=== PATIENT | male | born 1985 | race Two or more races ===

== ENCOUNTER 2018-06-11 21:56 | Emergency (ER) | payer BC ==
[2018-06-11] MEDS ORDERED: Lidocaine 1% 10 ML MDV INJECT ONE (22:21)
--- NOTE | 2018-06-11 22:22 | EDM.PDOC ---
ED HPI GENERAL MEDICAL PROBLEM - General Chief Complaint: Skin Complaint Stated Complaint: DIZZY Time Seen by Provider: 06/11/18 22:21 Source of Information: Reports: Patient - History of Present Illness INITIAL COMMENTS - FREE TEXT/NARRATIVE: HISTORY AND PHYSICAL: History of present illness: [Patient presents with cellulitis over left pubic area likely arising from an ingrown pubic care, is no fluctuation however there is some induration hence no exudates for culture, palms sized area of redness and tenderness in the left groin penis and scrotum are not involved Patient says he has had off-and-on subjective fever since 2 PM no nausea vomiting chills sweats no chest pain shortness breath headache dizziness palpitation no bowel or urine symptoms] Review of systems: As per history of present illness and below otherwise all systems reviewed and negative. Past medical history: As per history of present illness and as reviewed below otherwise noncontributory. Surgical history: As per history of present illness and as reviewed below otherwise noncontributory. Social history: No reported history of drug or alcohol abuse. Family history: As per history of present illness and as reviewed below otherwise noncontributory. Physical exam: HEENT: Atraumatic, normocephalic, pupils reactive, negative for conjunctival pallor or scleral icterus, mucous membranes moist, throat clear, neck supple, nontender, trachea midline. Lungs: Clear to auscultation, breath sounds equal bilaterally, chest nontender. Heart: S1S2, regular, negative for clicks, rubs, or JVD. Abdomen: Soft, nondistended, nontender. Negative for masses or hepatosplenomegaly. Negative for costovertebral tenderness. Pelvis: Stable nontender. Genitourinary: Deferred. Rectal: Deferred. Extremities: Atraumatic, negative for cords or calf pain. Neurovascular unremarkable. Neuro: Awake, alert, oriented. Cranial nerves II through XII unremarkable. Cerebellum unremarkable. Motor and sensory unremarkable throughout. Exam nonfocal. Diagnostics: [Clinical] Therapeutics: [Lidocaine ]Invanz 1 g IM Bactrim double strength by mouth twice a day #20 no refill Follow-up in 24 hours for recheck through the ER or with primary care impression: [ cellulitis ] Definitive disposition and diagnosis as appropriate pending reevaluation and review of above. left groin Pain Score (Numeric/FACES): 5 - Related Data Allergies Allergy/AdvReac Type Severity Reaction Status Date / Time No Known Allergies Allergy Verified 06/11/18 23:11 Home Meds: Home Meds Enalapril [Vasotec] 0 mg PO DAILY 06/11/18 [History] ED ROS GENERAL - Review of Systems Review Of Systems: See Below ED EXAM, SKIN/RASH Exam: See Below Course - Vital Signs Last Recorded V/S: Last Vital Signs Temp 96.9 F 06/11/18 22:18 Pulse 118 H 06/11/18 22:18 Resp 18 06/11/18 22:18 BP 159/94 H 06/11/18 22:18 Pulse Ox 95 06/11/18 22:18 - Orders/Labs/Meds Orders: Active Orders 24 hr Category Date Time Status Ertapenem [INVanz] Med 06/11/18 23:53 Stat 1 gm IM NOW STA Sulfamethoxazole/Trimethoprim [Septra DS] Med 06/11/18 23:53 Once 1 tab PO ONETIME ONE Meds: Medications Discontinued Medications Generic Name Dose Route Start Last Admin Trade Name Isaias PRN Reason Stop Dose Admin Lidocaine HCl 10 ml 06/11/18 22:28 Xylocaine-Mpf 1% INJECT 06/11/18 22:29 ONETIME ONE Departure - Departure Time of Disposition: 23:56 Disposition: Home, Self-Care 01 Condition: Good Clinical Impression: Cellulitis - Discharge Information Referrals: PCP,None [Primary Care Provider] - Forms: ED Department Discharge Additional Instructions: Follow-up through ER or with primary care in 24 hours for recheck Return if symptoms persist or worsen despite treatment The following information is given to patients seen in the emergency department who are being discharged to home. This information is to outline your options for follow-up care. We provide all patients seen in our emergency department with a follow-up referral. The need for follow-up, as well as the timing and circumstances, are variable depending upon the specifics of your emergency department visit. If you don't have a primary care physician on staff, we will provide you with a referral. We always advise you to contact your personal physician following an emergency department visit to inform them of the circumstance of the visit and for follow-up with them and/or the need for any referrals to a consulting specialist. The emergency department will also refer you to a specialist when appropriate. This referral assures that you have the opportunity for follow-up care with a specialist. All of these measure are taken in an effort to provide you with optimal care, which includes your follow-up. Under all circumstances we always encourage you to contact your private physician who remains a resource for coordinating your care. When calling for follow-up care, please make the office aware that this follow-up is from your recent emergency room visit. If for any reason you are refused follow-up, please contact the [facility] emergency department at and asked to speak to the emergency department charge nurse. - My Orders Last 24 Hours: My Active Orders 06/11/18 23:53 Ertapenem [INVanz] 1 gm IM NOW STA Sulfamethoxazole/Trimethoprim [Septra DS] 1 tab PO ONETIME ONE - Assessment/Plan Last 24 Hours: My Active Orders 06/11/18 23:53 Ertapenem [INVanz] 1 gm IM NOW STA Sulfamethoxazole/Trimethoprim [Septra DS] 1 tab PO ONETIME ONE
[2018-06-11] MEDS ORDERED: Ertapenem 1 GM Vial IM STA (23:53)
[2018-06-11] MEDS ORDERED: Sulfamethoxazole/Trimethoprim 800-160 MG Tab PO ONE (23:53)
== END 2018-06-12 00:44 | disposition home or self-care (01) ==
LOC: MW.ED 21:56
DX: L03.818 Cellulitis of other sites (principal); Z79.899 Other long term (current) drug therapy
CPT/HCPCS: 96372; 99283; A9270; J1335; J2001

== ENCOUNTER 2018-06-12 17:09 | Emergency (ER) | payer BC ==
--- NOTE | 2018-06-12 17:39 | EDM.PDOC ---
ED HPI GENERAL MEDICAL PROBLEM - General Chief Complaint: Wound Recheck Stated Complaint: "CHECK UP" Time Seen by Provider: 06/12/18 17:26 Source of Information: Reports: Patient History Limitations: Reports: No Limitations - History of Present Illness INITIAL COMMENTS - FREE TEXT/NARRATIVE: HISTORY AND PHYSICAL: History of present illness: Patient is a 32-year-old male who presents to the emergency room for reevaluation of a cellulitis to the left groin/mons pubis area. Patient was seen yesterday in our emergency room for a cellulitis which he had noticed over the past few days. He was given a shot of Invanz IM and placed on Bactrim DS. Patient states that he feels improved and believes the area is smaller in size and less irritated appearing. He offers no current complaints or concerns. Patient denies any fever, chills, headache, change in vision, syncope or near syncope. Denies any chest pain, back pain, shortness of breath or cough. Denies any abdominal pain, nausea, vomiting, diarrhea, constipation or dysuria. Has not noted any blood in urine or stool. Patient has been eating and drinking appropriately. Review of systems: As per history of present illness and below otherwise all systems reviewed and negative. Past medical history: As per history of present illness and as reviewed below otherwise noncontributory. Surgical history: As per history of present illness and as reviewed below otherwise noncontributory. Social history: See social history for further information Family history: As per history of present illness and as reviewed below otherwise noncontributory. Physical exam: General: Well-developed and well-nourished 32-year-old male. Alert and oriented. Nontoxic appearing and in no acute distress. HEENT: Atraumatic, normocephalic, pupils equal and reactive bilaterally, negative for conjunctival pallor or scleral icterus, mucous membranes moist, TMs normal bilaterally, throat clear, neck supple, nontender, trachea midline. No drooling or trismus noted. No meningeal signs. No hot potato voice noted. Lungs: Clear to auscultation, breath sounds equal bilaterally, chest nontender. Heart: S1S2, regular rate and rhythm without overt murmur Abdomen: Soft, nondistended, nontender. Negative for masses or hepatosplenomegaly. Negative for costovertebral tenderness. Pelvis: Stable nontender. Genitourinary: Deferred. Rectal: Deferred. Skin: Patient has a palmar sized surface to the left groin going into the mons pubis which is erythematous mild soft tissue swelling but nonfluctuant. Intact, warm, dry. No lesions or rashes noted. Extremities: Atraumatic, moves all extremities per self without difficulty or deficits, negative for cords or calf pain. Neurovascular unremarkable. Neuro: Awake, alert, oriented. Cranial nerves II through XII unremarkable. Cerebellum unremarkable. Motor and sensory unremarkable throughout. Exam nonfocal. Notes: Area appears cellulitic without abscess. Patient states he feels much improved since yesterday and receiving the antibiotics. We discussed signs and symptoms to continue to monitor for that would prompt him to return to the emergency room. On a secondary note the patient states he is out of his hypertension medication, as he just moved here he does not have a primary care provider. We' ll give him a limited amount of his medication until he is able to follow up with primary care. Supportive care measures were reviewed and discussed. Voices understanding and is agreeable to plan of care. Denies any further questions or concerns at this time. Diagnostics: None Therapeutics: None Prescription: Vasotec Impression: Wound recheck Encounter for medication refill Plan: 1. Continue to monitor the area for signs of improvement. Continue taking her antibiotic. 2. Establish care with a primary care provider for further refills of your hypertension medication and reevaluation of the cellulitis. 3. Return to the ED as needed and as discussed. Definitive disposition and diagnosis as appropriate pending reevaluation and review of above. Left groin Pain Score (Numeric/FACES): 3 - Related Data Allergies Allergy/AdvReac Type Severity Reaction Status Date / Time No Known Allergies Allergy Verified 06/12/18 17:24 Home Meds: Home Meds Enalapril [Vasotec] 0 mg PO DAILY 06/11/18 [History] Past Medical History HEENT History: Reports: None Cardiovascular History: Reports: Hypertension Respiratory History: Reports: None Gastrointestinal History: Reports: None Genitourinary History: Reports: None Musculoskeletal History: Reports: None Neurological History: Reports: None Psychiatric History: Reports: None Endocrine/Metabolic History: Reports: None Dermatologic History: Reports: None - Infectious Disease History Infectious Disease History: Reports: Chicken Pox - Past Surgical History Male Surgical History: Reports: None Social & Family History - Family History Family Medical History: Noncontributory ED ROS GENERAL - Review of Systems Review Of Systems: ROS reveals no pertinent complaints other than HPI. ED EXAM, SKIN/RASH Exam: See Below (See dictation) Course - Vital Signs Last Recorded V/S: Last Vital Signs Temp 98.7 F 06/12/18 17:24 Pulse 93 06/12/18 17:24 Resp 16 06/12/18 17:24 BP 135/77 06/12/18 17:24 Pulse Ox 95 06/12/18 17:24 Departure - Departure Time of Disposition: 17:39 Disposition: Home, Self-Care 01 Clinical Impression: Encounter for wound re-check, Encounter for medication refill - Discharge Information Referrals: PCP,Unknown [Primary Care Provider] - Additional Instructions: The following information is given to patients seen in the emergency department who are being discharged to home. This information is to outline your options for follow-up care. We provide all patients seen in our emergency department with a follow-up referral. The need for follow-up, as well as the timing and circumstances, are variable depending upon the specifics of your emergency department visit. If you don't have a primary care physician on staff, we will provide you with a referral. We always advise you to contact your personal physician following an emergency department visit to inform them of the circumstance of the visit and for follow-up with them and/or the need for any referrals to a consulting specialist. The emergency department will also refer you to a specialist when appropriate. This referral assures that you have the opportunity for follow-up care with a specialist. All of these measure are taken in an effort to provide you with optimal care, which includes your follow-up. Under all circumstances we always encourage you to contact your private physician who remains a resource for coordinating your care. When calling for follow-up care, please make the office aware that this follow-up is from your recent emergency room visit. If for any reason you are refused follow-up, please contact the [facility] Emergency Department at and asked to speak to the emergency department charge nurse. [facility] [address] [place] [id number] [facility] [address] [place] [address] 1. Continue to monitor the area for signs of improvement. Continue taking her antibiotic. 2. Establish care with a primary care provider for further refills of your hypertension medication and reevaluation of the cellulitis. 3. Return to the ED as needed and as discussed.
== END 2018-06-12 17:55 | disposition home or self-care (01) ==
LOC: MW.ED 17:09
DX: Z48.817 Encounter for surgical aftercare following surgery on the skin and subcutaneous tissue (principal); Z76.0 Encounter for issue of repeat prescription; I10 Essential (primary) hypertension; Z79.899 Other long term (current) drug therapy; R42 Dizziness and giddiness; L03.818 Cellulitis of other sites
CPT/HCPCS: 96372; 99282; 99283; A9270; J1335; J2001

== ENCOUNTER 2018-06-17 16:58 | Emergency (ER) | payer BC ==
--- NOTE | 2018-06-17 17:18 | EDM.PDOC ---
ED HPI GENERAL MEDICAL PROBLEM - General Chief Complaint: Skin Complaint Stated Complaint: CHECK UP ON ABSESS Time Seen by Provider: 06/17/18 17:00 Source of Information: Reports: Patient History Limitations: Reports: No Limitations - History of Present Illness INITIAL COMMENTS - FREE TEXT/NARRATIVE: HISTORY AND PHYSICAL: History of present illness: Patient is a 32-year-old male who presents to the emergency room requesting reevaluation of a cellulitis. Patient reports that the redness has improved but feels like the area is now very localized and as if he could "put a pin in it". Patient was initially evaluated on 06/11/2018 and had lab work along with an IM injection of Invanz. Patient was placed on Bactrim DS orally. He was reevaluated on 06/12/2018 for reevaluation after starting the medications. His cellulitis had greatly improved along with his symptoms. Patient denies any fever, chills, headache, change in vision, syncope or near syncope. Denies any chest pain, back pain, shortness of breath or cough. Denies any abdominal pain, nausea, vomiting, diarrhea, constipation or dysuria. Has not noted any blood in urine or stool. Patient has been eating and drinking appropriately. Review of systems: As per history of present illness and below otherwise all systems reviewed and negative. Past medical history: As per history of present illness and as reviewed below otherwise noncontributory. Surgical history: As per history of present illness and as reviewed below otherwise noncontributory. Social history: See social history for further information Family history: As per history of present illness and as reviewed below otherwise noncontributory. Physical exam: General: Well-developed and well-nourished 32-year-old male. Alert and oriented. Nontoxic appearing and in no acute distress. HEENT: Atraumatic, normocephalic, pupils equal and reactive bilaterally, negative for conjunctival pallor or scleral icterus, mucous membranes moist, trachea midline. No drooling or trismus noted. No meningeal signs. No hot potato voice noted. Lungs: Clear to auscultation, breath sounds equal bilaterally, chest nontender. Heart: S1S2, regular rate and rhythm without overt murmur Abdomen: Soft, nondistended, nontender. Pelvis: Stable nontender. See skin. Skin: Large palm size area of erythema to the left mons pubis. Does have a localized area of fluctuance approximately the size of a nickel in the center of it. Otherwise skin is intact, warm, dry. No lesions or rashes noted. Extremities: Atraumatic, moves all extremities per self without difficulty or deficits, negative for cords or calf pain. Neurovascular unremarkable. Neuro: Awake, alert, oriented. Cranial nerves II through XII unremarkable. Cerebellum unremarkable. Motor and sensory unremarkable throughout. Exam nonfocal. Notes: Patient is continuing to take his Bactrim DS. Dr Whelan assisted with procedure. Betadine was used to cleanse the skin. 1% lidocaine was used to anesthetize the fluctuant area. Usual and customary procedures were used for I& D procedure. 11 blade was used for I&D with moderate amount of purulent drainage coming from the site. Site was irrigated with pressure irrigation. 1 inch to foam packing was placed. Wound care instructions were reviewed and discussed. Wound care provided. Supportive care measures were reviewed and discussed. Voices understanding and is agreeable to plan of care. Denies any further questions or concerns at this time. Diagnostics: None Therapeutics: I&D Prescription: Fletcher (#15) Impression: Abscess Plan: 1. Keep skin clean and dry. 2. Tylenol and Ibuprofen as needed for pain. Fletcher for moderate to severe pain. Will cause drowsiness; don't drive with medication. 3. Follow-up with your primary care provider/establish care as we have discussed previously and again today. Return to the ED as needed and as discussed. Definitive disposition and diagnosis as appropriate pending reevaluation and review of above. Left Groin Pain Score (Numeric/FACES): 5 - Related Data Allergies Allergy/AdvReac Type Severity Reaction Status Date / Time No Known Allergies Allergy Verified 06/12/18 17:24 Home Meds: Home Meds Sulfamethoxazole/Trimethoprim [Bactrim Ds Tablet] 1 each PO DAILY 06/17/18 [ History] Past Medical History HEENT History: Reports: None Cardiovascular History: Reports: Hypertension Respiratory History: Reports: None Gastrointestinal History: Reports: None Genitourinary History: Reports: None Musculoskeletal History: Reports: None Neurological History: Reports: None Psychiatric History: Reports: None Endocrine/Metabolic History: Reports: None Dermatologic History: Reports: None - Infectious Disease History Infectious Disease History: Reports: Chicken Pox - Past Surgical History Male Surgical History: Reports: None Social & Family History - Family History Family Medical History: Noncontributory - Caffeine Use Caffeine Use: Reports: None ED ROS GENERAL - Review of Systems Review Of Systems: ROS reveals no pertinent complaints other than HPI. ED EXAM, SKIN/RASH Exam: See Below (See dictation) ED SKIN PROCEDURES - I&D Site: Mons Pubis Skin Prep: Providone-Iodine (Betadine), Saline, Sterile Drape Local Anesthesia: Lidocaine: 1% Plain Local Anesthetic Volume: 4cc Area Incised With: 11 Blade Drainage: Purulent, Moderate Amount Probed to Break Up Loculations: Yes Packed With: 1 in. Iodoform Sterile Dressing: Adhesive Dressing Complications: No Course - Vital Signs Last Recorded V/S: Last Vital Signs Temp 97.3 F 06/17/18 17:23 Pulse 81 06/17/18 18:07 Resp 16 06/17/18 18:07 BP 134/71 06/17/18 18:07 Pulse Ox 99 06/17/18 18:07 - Orders/Labs/Meds Meds: Medications Discontinued Medications Generic Name Dose Route Start Last Admin Trade Name Isaias PRBert Reason Stop Dose Admin Hydrocodone Bitart/Acetaminophen 1 tab 06/17/18 17:48 06/17/18 18:00 Fletcher 325-5 Mg PO 06/17/18 17:49 1 tab ONETIME ONE Administration Lidocaine HCl 5 ml 06/17/18 17:25 06/17/18 17:31 Xylocaine-Mpf 1% INJECT 06/17/18 17:26 5 ml ONETIME ONE Administration Departure - Departure Time of Disposition: 17:47 Disposition: Home, Self-Care 01 Clinical Impression: Abscess - Discharge Information Instructions: Skin Abscess, [id number] Referrals: PCP,Unknown [Primary Care Provider] - Forms: ED Department Discharge Additional Instructions: The following information is given to patients seen in the emergency department who are being discharged to home. This information is to outline your options for follow-up care. We provide all patients seen in our emergency department with a follow-up referral. The need for follow-up, as well as the timing and circumstances, are variable depending upon the specifics of your emergency department visit. If you don't have a primary care physician on staff, we will provide you with a referral. We always advise you to contact your personal physician following an emergency department visit to inform them of the circumstance of the visit and for follow-up with them and/or the need for any referrals to a consulting specialist. The emergency department will also refer you to a specialist when appropriate. This referral assures that you have the opportunity for follow-up care with a specialist. All of these measure are taken in an effort to provide you with optimal care, which includes your follow-up. Under all circumstances we always encourage you to contact your private physician who remains a resource for coordinating your care. When calling for follow-up care, please make the office aware that this follow-up is from your recent emergency room visit. If for any reason you are refused follow-up, please contact the [facility] Emergency Department at and asked to speak to the emergency department charge nurse. [facility] [address] [place], [place] [id number] [place] [address] 1. Keep skin clean and dry. Pull the wick out in 24 hours. 2. Tylenol and Ibuprofen as needed for pain. Fletcher for moderate to severe pain. Will cause drowsiness; don't drive with medication. 3. Follow-up with your primary care provider/establish care as we have discussed previously and again today. Return to the ED as needed and as discussed.
[2018-06-17] MEDS ORDERED: Acetaminophen/HYDROcodone 325-5 MG Tab PO ONE (17:48)
== END 2018-06-17 18:08 | disposition home or self-care (01) ==
LOC: MW.ED 16:58
DX: L02.215 Cutaneous abscess of perineum (principal)
CPT/HCPCS: 10061; 99282; A9270; J2001

== ENCOUNTER 2021-02-06 10:23 | Emergency (ER) | payer BC ==
[2021-02-06] MEDS ORDERED: Sodium Chloride 0.9% 10 ML Syringe FLUSH PRN (10:45)
[2021-02-06] MEDS ORDERED: Sodium Chloride 0.9% 2.5 ML Syringe FLUSH PRN (10:45)
--- NOTE | 2021-02-06 10:55 | EDM.PDOC ---
ED HPI GENERAL MEDICAL PROBLEM - General Chief Complaint: Respiratory Problem Stated Complaint: HARD TIME BREATHING Time Seen by Provider: 02/06/21 10:23 - History of Present Illness INITIAL COMMENTS - FREE TEXT/NARRATIVE: History of present illness: [] Patient says he started having symptoms 7 days ago. He has chest pain. He has cough. He feels fatigued. He has no sinus congestion. He does get a little sweaty when he has the pain. It is fairly constant. He is a non-smoker. He was tested +4 days ago for COVID-19. His is also positive for COVID- 19. Patient was not vaccinated. This patient was seen and evaluated during the 2019 SARS-CoV-2 novel coronavirus pandemic period. Community viral transmission is ongoing at time of this encounter and the emergency department is operating under pandemic response p rocedures. Review of systems: As per history of present illness and below otherwise all systems reviewed and negative. Past medical history: As per history of present illness and as reviewed below otherwise noncontributory. Surgical history: As per history of present illness and as reviewed below otherwise noncontributory. Social history: No reported history of drug or alcohol abuse. Family history: As per history of present illness and as reviewed below otherwise noncontributory. Physical exam: Constitutional - well developed, well-nourished and in no acute distress HEENT - normocephalic, no evidence of trauma - external nose and mouth normal - no mass in neck and no JVD - mucosae moist EYES - full EOM, PERRL, no icterus - no evidence of inflammation, injection, or drainage Respiratory - no respiratory distress, equal bilateral expansion, lungs clear to auscultation and no abnormal lung sounds Cardiovascular - Regular Rhythm with S1 and S2 appreciated and no murmur, gallop or rub. GI - abdomen soft without distension or organomegaly - normal bowel sounds - no guard or rebound Musculoskeletal no gross deformity of long bones or joints - no tenderness, swelling or edema Neurologic - Alert and oriented times four - CN II-XII grossly intact - motor sensory and coordination symmetrically normal Psychiatric - appropriate mood and affect with normal thought content Hematologic - No petechiae or purpura - mucosa appropriate color and sclera not pale - normal nail bed color and refill Integument - no rash or evidence of trauma - normal turgor Diagnostics: [] Therapeutics: [] Impression: [] Plan: [] Definitive disposition and diagnosis as appropriate pending reevaluation and review of above. - Related Data Allergies Allergy/AdvReac Type Severity Reaction Status Date / Time No Known Allergies Allergy Verified 02/06/21 10:42 Home Meds: Home Meds . [No Known Home Meds] 02/06/21 [History] Past Medical History HEENT History: Reports: None Cardiovascular History: Reports: Hypertension Respiratory History: Reports: None Gastrointestinal History: Reports: None Genitourinary History: Reports: None Musculoskeletal History: Reports: None Neurological History: Reports: None Psychiatric History: Reports: None Endocrine/Metabolic History: Reports: None Hematologic History: Reports: None Immunologic History: Reports: None Oncologic (Cancer) History: Reports: None Dermatologic History: Reports: None - Infectious Disease History Infectious Disease History: Reports: Chicken Pox - Past Surgical History Head Surgeries/Procedures: Reports: None Male Surgical History: Reports: None Social & Family History - Family History Family Medical History: No Pertinent Family History - Caffeine Use Caffeine Use: Reports: None ED ROS GENERAL - Review of Systems Review Of Systems: Comprehensive ROS is negative, except as noted in HPI. ED EXAM, GENERAL - Physical Exam Exam: See Below Free Text/Narrative:: My physical exam is in the HPI #1 Interpretation EKG Interpretation Comments: EKG done at 10:43 AM on 02/06/2021 shows sinus tachycardia heart rate 107 OH 126 QT 433 axis I 72 there is late transition R wave but otherwise EKG is normal impression no significant acute injury. Course - Vital Signs Last Recorded V/S: Last Vital Signs Temp 38.0 C 02/06/21 10:42 Pulse 104 H 02/06/21 11:15 Resp 20 02/06/21 11:15 BP 125/83 02/06/21 11:15 Pulse Ox 96 02/06/21 11:15 - Orders/Labs/Meds Orders: Active Orders 24 hr Category Date Time Status Oxygen Therapy [RC] ASDIRECTED Care 02/06/21 10:46 Active Sodium Chloride 0.9% [Saline Flush] Med 02/06/21 10:45 Active 10 ml FLUSH ASDIRECTED PRN Sodium Chloride 0.9% [Saline Flush] Med 02/06/21 10:45 Active 2.5 ml FLUSH ASDIRECTED PRN Saline Lock Insert [OM.PC] Stat Oth 02/06/21 10:45 Ordered Medication Orders Sodium Chloride (Sodium Chloride 0.9% 10 Ml Syringe) 10 ml FLUSH ASDIRECTED PRN PRN Reason: Keep Vein Open Last Admin: 02/06/21 11:13 Dose: 10 ml Documented by: FELIPE Sodium Chloride (Sodium Chloride 0.9% 2.5 Ml Syringe) 2.5 ml FLUSH ASDIRECTED PRN PRN Reason: Keep Vein Open Last Admin: 02/06/21 11:13 Dose: 2.5 ml Documented by: FELIPE Labs: Laboratory Tests 02/06/21 02/06/21 Range/Units 10:55 10:55 WBC 6.39 (4.0-11.0) K/uL RBC 5.06 (4.50-5.90) M/uL Hgb 15.7 (13.0-17.0) g/dL Hct 44.8 (38.0-50.0) % MCV 88.5 (80.0-98.0) fL MCH 31.0 (27.0-32.0) pg MCHC 35.0 (31.0-37.0) g/dL RDW Std Deviation 42.1 (28.0-62.0) fl RDW Coeff of Kathy 13 (11.0-15.0) % Plt Count 242 (150-400) K/uL MPV 9.80 (7.40-12.00) fL Neut % (Auto) 76.6 (48.0-80.0) % Lymph % (Auto) 13.0 L (16.0-40.0) % [place] % (Auto) 9.9 (0.0-15.0) % Eos % (Auto) 0.2 (0.0-7.0) % Baso % (Auto) 0.3 (0.0-1.5) % Neut # (Auto) 4.9 (1.4-5.7) K/uL Lymph # (Auto) 0.8 (0.6-2.4) K/uL [place] # (Auto) 0.6 (0.0-0.8) K/uL Eos # (Auto) 0.0 (0.0-0.7) K/uL Baso # (Auto) 0.0 (0.0-0.1) K/uL Nucleated RBC % 0.0 /100WBC Nucleated RBCs # 0 K/uL Sodium 133 L (136-148) mmol/L Potassium 3.9 (3.5-5.1) mmol/L Chloride 98 (98-107) mmol/L Carbon Dioxide 23.3 (21.0-32.0) mmol/L BUN 7 (7.0-18.0) mg/dL Creatinine 0.9 (0.8-1.3) mg/dL Est Cr Clr Drug Dosing 106.09 mL/min Estimated GFR (MDRD) > 60.0 ml/min Glucose 104 (74-106) mg/dL Calcium 8.5 (8.5-10.1) mg/dL Troponin I < 0.050 (0.000-0.056) ng/mL Meds: Medications Generic Name Dose Route Start Last Admin Trade Name Freq PRN Reason Stop Dose Admin Sodium Chloride 10 ml 02/06/21 10:45 02/06/21 11:13 Sodium Chloride 0.9% 10 Ml Syringe FLUSH 10 ml ASDIRECTED PRN Administration Keep Vein Open Sodium Chloride 2.5 ml 02/06/21 10:45 02/06/21 11:13 Sodium Chloride 0.9% 2.5 Ml Syringe FLUSH 2.5 ml ASDIRECTED PRN Administration Keep Vein Open - Re-Assessments/Exams Free Text/Narrative Re-Assessment/Exam: 02/06/21 12:08 Patient is doing well on oxygen in the emergency department. He lives in [facility]. We will arrange for oxygen at home and let him go home. Departure - Departure Time of Disposition: 14:18 Disposition: Home, Self-Care 01 Condition: Good Clinical Impression: Hypoxia, Pneumonia due to COVID-19 virus - Discharge Information Instructions: COVID-19 Vaccine Information, COVID-19: Quarantine vs. Isolation - [facility] (01/24/2020), COVID-19: What to Do If You Are Sick- [facility] (04/23/2020) Referrals: PCP,None [Primary Care Provider] - Forms: ED Department Discharge Additional Instructions: If you feel like you are short of breath even despite oxygen you must return. Expect body aches muscle aches fever weakness. Use [id number] medicines for pain and symptoms. [facility] - [facility] [address] [place], [place] [id number] [facility] [address] [place] [id number] The following information is given to patients seen in the emergency department who are being discharged to home. This information is to outline your options for follow-up care. We provide all patients seen in our emergency department with a follow-up referral. The need for follow-up, as well as the timing and circumstances, are variable depending upon the specifics of your emergency department visit. If you don't have a primary care physician on staff, we will provide you with a referral. We always advise you to contact your personal physician following an emergency department visit to inform them of the circumstance of the visit and for follow-up with them and/or the need for any referrals to a consulting specialist. The emergency department will also refer you to a specialist when appropriate. This referral assures that you have the opportunity for follow-up care with a specialist. All of these measure are taken in an effort to provide you with optimal care, which includes your follow-up. Under all circumstances we always encourage you to contact your private physician who remains a resource for coordinating your care. When calling for follow-up care, please make the office aware that this follow-up is from your recent emergency room visit. If for any reason you are refused follow-up, please contact the [facility] Emergency Department at and asked to speak to the emergency department charge nurse. Sepsis Event Note (ED) - Evaluation Sepsis Screening Result: No Definite Risk - Focused Exam Vital Signs: Vital Signs Temp Pulse Resp BP Pulse Ox 02/06/21 11:15 104 H 20 125/83 96 02/06/21 10:42 38.0 C 107 H 20 157/89 H 87 L - My Orders Last 24 Hours: My Active Orders 02/06/21 10:45 Sodium Chloride 0.9% [Saline Flush] 10 ml FLUSH ASDIRECTED PRN Sodium Chloride 0.9% [Saline Flush] 2.5 ml FLUSH ASDIRECTED PRN Saline Lock Insert [OM.PC] Stat 02/06/21 10:46 Oxygen Therapy [RC] ASDIRECTED - Assessment/Plan Last 24 Hours: My Active Orders 02/06/21 10:45 Sodium Chloride 0.9% [Saline Flush] 10 ml FLUSH ASDIRECTED PRN Sodium Chloride 0.9% [Saline Flush] 2.5 ml FLUSH ASDIRECTED PRN Saline Lock Insert [OM.PC] Stat 02/06/21 10:46 Oxygen Therapy [RC] ASDIRECTED
--- NOTE | 2021-02-06 11:33 | CR ---
Indication: Shortness of breath. COVID positive. Technique: AP portable view of the chest. Comparison: None Findings: The heart is normal in size. Patchy bilateral ground-glass opacities are identified, slightly greater on the right than the left. No pleural effusion or pneumothorax is identified. Impression: Patchy bilateral ground-glass opacities. Dictated by Sarai Cardona MD @ 02/06/2021 11:33:00 AM (Electronically Signed)
[2021-02-06 11:34] LABS: BLOOD UREA NITROGEN,BUN 7 mg/dL (7.0-18.0); CARBON DIOXIDE,CO2 23.3 mmol/L (21.0-32.0); CHLORIDE,CL 98 mmol/L (98-107); GLUCOSE RANDOM 104 mg/dL (74-106); POTASSIUM,K 3.9 mmol/L (3.5-5.1); SODIUM,NA 133 mmol/L (136-148)
[2021-02-06] MEDS ORDERED: Dexamethasone 10 MG/ML SDV IM ONE (18:21)
== END 2021-02-06 14:44 | disposition home or self-care (01) ==
LOC: MW.ED 10:23
DX: U07.1 COVID-19 (principal); J12.82 Pneumonia due to coronavirus disease 2019; R09.02 Hypoxemia; I10 Essential (primary) hypertension
CPT/HCPCS: 36415; 71045; 71045-26; 80048; 84484; 85025; 99285-25

== ENCOUNTER 2024-05-17 22:41 | Inpatient (IN) | payer BC, OTHER ==
[2024-05-17] MEDS: HYDROmorphone 0.5 MG/0.5 ML Syringe IVPUSH ONE (23:11)
[2024-05-17] MEDS: Ondansetron 4 MG/2 ML SDV IVPUSH ONE (23:11)
[2024-05-17] MEDS: Acetaminophen 500 MG Tab PO ONE (23:11)
[2024-05-17] MEDS: Sodium Chloride 0.9% 1,000 ML IV ONE (23:11)
[2024-05-17 23:17] LABS: BASOPHILS PERCENT AUTO 1.5 % (0.0-1.0); EOSINOPHILS ABSOLUTE AUTO 0.11 K/uL (0.00-0.45); EOSINOPHILS PERCENT AUTO 1.6 % (0.0-6.0); HEMATOCRIT 43.5 % (42.0-52.0); HEMOGLOBIN 15.1 g/dL (14.0-18.0); IMMATURE GRAN ABSOLUTE AUTO 0.61 K/uL (0.00-0.05); IMMATURE GRAN PERCENT AUTO 9.1 % (0.0-0.4); LYMPHOCYTES ABSOLUTE AUTO 1.35 K/uL (1.00-4.80); LYMPHOCYTES PERCENT AUTO 20.2 % (24.0-44.0); MEAN CORPUSCULAR HEMOGLOBIN 31.6 pg (28.0-32.0); MEAN CORPUSCULAR HGB CONC 34.7 g/dL (32.0-36.0); MEAN PLATELET VOLUME 9.6 fL (9.4-12.4); MONOCYTES ABSOLUTE AUTO 0.81 K/uL (0.00-0.80); MONOCYTES PERCENT AUTO 12.1 % (0.0-8.0); NEUTROPHILS ABSOLUTE AUTO 3.69 K/uL (1.80-7.70); NEUTROPHILS PERCENT AUTO 55.5 % (41.0-71.0); PLATELET COUNT,PLT 312 K/uL (150-400); RED BLOOD CELL COUNT 4.78 M/uL (4.52-5.90); WHITE BLOOD CELL COUNT,WBC 6.67 K/uL (3.9-11.3)
[2024-05-17] MEDS: Iopamidol 755 MG/ML 500 ML Multipack Bottle IVPUSH ONE (23:40)
[2024-05-17 23:46] LABS: A/G RATIO 0.7 (0.9-1.6); ALBUMIN 2.9 g/dL (3.4-5.0); BILIRUBIN TOTAL 0.4 mg/dL (0.2-1.0); C-REACTIVE PROTEIN 7.65 mg/dL (<0.3); CALCIUM 8.8 mg/dL (8.5-10.1); CARBON DIOXIDE,CO2 22.7 mmol/L (21.0-32.0); CREATININE 1.2 mg/dL (0.8-1.3); EST CRCL DRUG DOSING (CG) 77.27 mL/min; POTASSIUM,K 3.7 mmol/L (3.5-5.1); PROTEIN TOTAL,TP 7.3 g/dL (6.4-8.2)
[2024-05-18] MEDS: Sodium Chloride 0.9% 1,000 ML IV ONE (00:13)
[2024-05-18] MEDS ORDERED: Sodium Chloride 0.9% 1,000 ML IV SCH (00:15)
[2024-05-18] MEDS: HYDROmorphone 0.5 MG/0.5 ML Syringe IVPUSH ONE (00:16)
[2024-05-18] MEDS: Piperacillin/Tazobactam 4.5 GM in Sodium Chloride 0.9% 100 ML IV ONE (00:17)
[2024-05-18] MEDS ORDERED: Ondansetron 4 MG/2 ML SDV IVPUSH PRN ×2 (00:28→07:40)
[2024-05-18] MEDS: HYDROmorphone 0.5 MG/0.5 ML Syringe IVPUSH PRN (01:24)
[2024-05-18] MEDS: Lactated Ringers 1,000 ML IV SCH (01:37)
[2024-05-18] MEDS: Piperacillin/Tazobactam 4.5 GM in Sodium Chloride 0.9% 100 ML IV SCH (04:31)
[2024-05-18 04:56] LABS: APPEARANCE,URINE CLEAR; BILIRUBIN,URINE NEGATIVE (NEGATIVE); COLOR,URINE YELLOW; GLUCOSE,URINE NEGATIVE (NEGATIVE); KETONES,URINE NEGATIVE (NEGATIVE); LEUKOCYTE ESTERASE,URINE NEGATIVE (NEGATIVE); NITRITE,URINE NEGATIVE (NEGATIVE); OCCULT BLOOD,URINE NEGATIVE (NEGATIVE); PH,URINE 5.5 (5.0-8.0); PROTEIN,URINE NEGATIVE (NEGATIVE); UROBILINOGEN,URINE 0.2 EU/dL (<2.0)
[2024-05-18] MEDS ORDERED: Bupivacaine 0.5% 30 ML SDV ONE (07:15)
[2024-05-18] MEDS ORDERED: fentaNYL 100 MCG/2 ML SDV ONE ×2 (07:25→08:31)
[2024-05-18] MEDS ORDERED: Midazolam 1 MG/ML 2 ML SDV ONE (07:25)
[2024-05-18] MEDS ORDERED: Propofol 200 MG/20 ML SDV ONE (07:25)
[2024-05-18] MEDS ORDERED: Lidocaine 2% 5 ML SDV ONE (07:26)
[2024-05-18] MEDS ORDERED: Sodium Chloride 0.9% 20 ML ONE (07:29)
[2024-05-18] MEDS ORDERED: dexmedeTOMIDine HCl 200 MCG/2 ML SDV ONE (07:29)
[2024-05-18] MEDS ORDERED: Ropivacaine 0.5% 5 MG/ML 30 ML SDV ONE (07:29)
[2024-05-18] MEDS ORDERED: Rocuronium Bromide 50 MG/5 ML Syringe ONE ×2 (07:33→08:28)
[2024-05-18] MEDS ORDERED: Metoclopramide 10 MG/2 ML SDV IVPUSH PRN (07:40)
[2024-05-18] MEDS ORDERED: Morphine 2 MG/ML SYRINGE IVPUSH PRN (07:40)
[2024-05-18] MEDS ORDERED: HYDROmorphone 1 MG/ML Syringe IVPUSH PRN (07:40)
[2024-05-18] MEDS ORDERED: Phenylephrine HCl In 0.9% NaCl 1 MG/10 ML Syringe IVPUSH PRN (07:40)
[2024-05-18] MEDS ORDERED: fentaNYL 50 MCG/ML SDV IVPUSH PRN (07:40)
[2024-05-18] MEDS ORDERED: Naloxone 0.4 MG/ML SDV IVPUSH PRN (07:40)
[2024-05-18] MEDS ORDERED: Albuterol 0.083% 2.5 MG/3 ML Neb Soln NEB PRN (07:40)
[2024-05-18] MEDS ORDERED: Piperacillin/Tazobactam 4.5 GM in Sodium Chloride 0.9% 100 ML IV SCH (08:07)
[2024-05-18] MEDS ORDERED: Dexamethasone 4 MG/ML 5 ML MDV ONE (08:32)
[2024-05-18] MEDS ORDERED: Esmolol 100 MG/10 ML SDV ONE (08:48)
[2024-05-18] MEDS ORDERED: ceFAZolin 1 GM Vial ONE (08:58)
[2024-05-18] MEDS ORDERED: Metoprolol Tartrate 5 MG/5 ML SDV ONE (09:08)
[2024-05-18] MEDS ORDERED: Ketorolac 30 MG/ML SDV ONE (09:10)
[2024-05-18] MEDS ORDERED: Sugammadex Sodium 200 MG/2 ML VIAL IV ONE (09:24)
[2024-05-18] MEDS ORDERED: Ondansetron 4 MG/2 ML SDV ONE (09:24)
[2024-05-18] MEDS ORDERED: HYDROmorphone 1 MG/ML Syringe ONE (09:33)
[2024-05-18] MEDS ORDERED: HYDROmorphone 2 MG/ML Syringe IVPUSH PRN (09:50)
[2024-05-18] MEDS ORDERED: Sennosides/Docusate Sodium 50-8.6 MG Tab PO PRN (09:50)
[2024-05-18 11:07] LABS: HEMATOCRIT 39.9 % (42.0-52.0); HEMOGLOBIN 13.6 g/dL (14.0-18.0); MEAN CORPUSCULAR HEMOGLOBIN 31.9 pg (28.0-32.0); MEAN CORPUSCULAR HGB CONC 34.1 g/dL (32.0-36.0); MEAN CORPUSCULAR VOLUME 93.7 fL (83.0-99.0); MEAN PLATELET VOLUME 9.5 fL (9.4-12.4); PLATELET COUNT,PLT 278 K/uL (150-400); RED BLOOD CELL COUNT 4.26 M/uL (4.52-5.90); WHITE BLOOD CELL COUNT,WBC 13.66 K/uL (3.9-11.3)
[2024-05-18 11:45] LABS: CARBON DIOXIDE,CO2 23.6 mmol/L (21.0-32.0); CREATININE 1.3 mg/dL (0.8-1.3); EST CRCL DRUG DOSING (CG) 71.33 mL/min; POTASSIUM,K 4.7 mmol/L (3.5-5.1)
[2024-05-18] MEDS: Cyclobenzaprine 10 MG Tab PO SCH ×2 (12:14→12:39)
[2024-05-18] MEDS: Acetaminophen 325 MG Tab PO SCH ×2 (12:15→12:39)
[2024-05-18 13:11] LABS: HEMOGLOBIN A1C 6.1 %
[2024-05-18] MEDS: Ketorolac 30 MG/ML SDV IVPUSH SCH (15:42)
[2024-05-18] MEDS: Pantoprazole 40 MG Tab.CR PO SCH (21:08)
[2024-05-19] MEDS: oxyCODONE 5 MG Tab PO PRN (05:46)
[2024-05-19 07:06] LABS: HEMATOCRIT 38.8 % (42.0-52.0); HEMOGLOBIN 12.7 g/dL (14.0-18.0); MEAN CORPUSCULAR HEMOGLOBIN 31.3 pg (28.0-32.0); MEAN CORPUSCULAR HGB CONC 32.7 g/dL (32.0-36.0); MEAN CORPUSCULAR VOLUME 95.6 fL (83.0-99.0); MEAN PLATELET VOLUME 9.7 fL (9.4-12.4); PLATELET COUNT,PLT 262 K/uL (150-400); RED BLOOD CELL COUNT 4.06 M/uL (4.52-5.90); WHITE BLOOD CELL COUNT,WBC 15.36 K/uL (3.9-11.3)
[2024-05-19 07:32] LABS: CALCIUM 8.5 mg/dL (8.5-10.1); CARBON DIOXIDE,CO2 26.2 mmol/L (21.0-32.0); EST CRCL DRUG DOSING (CG) 92.72 mL/min; POTASSIUM,K 3.7 mmol/L (3.5-5.1)
[2024-05-19] MEDS: Enoxaparin 40 MG/0.4 ML Syringe SUBCUT SCH (09:14)
[2024-05-20 06:17] LABS: HEMATOCRIT 38.6 % (42.0-52.0); HEMOGLOBIN 12.8 g/dL (14.0-18.0); MEAN CORPUSCULAR HEMOGLOBIN 31.3 pg (28.0-32.0); MEAN CORPUSCULAR HGB CONC 33.2 g/dL (32.0-36.0); MEAN CORPUSCULAR VOLUME 94.4 fL (83.0-99.0); MEAN PLATELET VOLUME 9.7 fL (9.4-12.4); NRBC ABSOLUTE 0.04 K/uL (0.00-0.02); NRBC PERCENT 0.3 /100WBC (0.0-0.2); PLATELET COUNT,PLT 291 K/uL (150-400); RED BLOOD CELL COUNT 4.09 M/uL (4.52-5.90)
[2024-05-20 06:35] LABS: CALCIUM 8.8 mg/dL (8.5-10.1); CARBON DIOXIDE,CO2 27.1 mmol/L (21.0-32.0); EST CRCL DRUG DOSING (CG) 92.72 mL/min; POTASSIUM,K 3.5 mmol/L (3.5-5.1)
[2024-05-20 07:24] LABS: EOSINOPHILS ABSOLUTE MAN 0.54 K/uL (0.00-0.45); EOSINOPHILS PERCENT MAN 4 % (0-6); LYMPHOCYTES ABSOLUTE MAN 1.22 K/uL (1.00-4.80); LYMPHOCYTES PERCENT MAN 9 % (24-44); MONOCYTES ABSOLUTE MAN 0.81 K/uL (0.00-0.80); MONOCYTES PERCENT MAN 6 % (0-8); MYELOCYTE ABSOLUTE MAN 0.14; MYELOCYTE PERCENT MAN 1 %
[2024-05-20 07:25] LABS: SEG NEUTROPHILS PERCENT MAN 80 % (41-71)
[2024-05-20 10:42] LABS: TSH ULTRASENSITIVE 1.38 uIU/mL (0.36-3.74)
[2024-05-20] MEDS: Enalapril 5 MG Tab PO SCH (11:31)
[2024-05-20] MEDS: hydrALAZINE 20 MG/ML SDV IVPUSH ONE (17:25)
[2024-05-21 06:19] LABS: HEMATOCRIT 39.2 % (42.0-52.0); HEMOGLOBIN 13.7 g/dL (14.0-18.0); MEAN CORPUSCULAR HEMOGLOBIN 31.8 pg (28.0-32.0); MEAN CORPUSCULAR HGB CONC 34.9 g/dL (32.0-36.0); MEAN PLATELET VOLUME 9.3 fL (9.4-12.4); NRBC ABSOLUTE 0.02 K/uL (0.00-0.02); NRBC PERCENT 0.1 /100WBC (0.0-0.2); PLATELET COUNT,PLT 360 K/uL (150-400); RED BLOOD CELL COUNT 4.31 M/uL (4.52-5.90); WHITE BLOOD CELL COUNT,WBC 14.57 K/uL (3.9-11.3)
[2024-05-21 06:39] LABS: CALCIUM 8.7 mg/dL (8.5-10.1); CARBON DIOXIDE,CO2 27.3 mmol/L (21.0-32.0); EST CRCL DRUG DOSING (CG) 92.72 mL/min; POTASSIUM,K 3.5 mmol/L (3.5-5.1)
[2024-05-21] MEDS: metroNIDAZOLE 250 MG Tab PO SCH (09:30)
[2024-05-21] MEDS: Ciprofloxacin 500 MG Tab PO SCH (09:30)
[2024-05-21] MEDS: Enalapril 5 MG Tab PO SCH (09:30)
== END 2024-05-21 12:48 | disposition home or self-care (01) | DRG 710 ==
LOC: MW.ED 22:41 → MW.MS 05-18 00:12 → OBSVTOIN 05-18 09:50 → MW.MS 05-18 12:10
PROVIDERS: ADMIT Surgery; ATTEND Surgery
PROC: 0WJG4ZZ Inspection of Peritoneal Cavity, Percutaneous Endoscopic Approach (ICD-10-PCS; 2024-05-18)
PROC: 0DTJ0ZZ Resection of Appendix, Open Approach (ICD-10-PCS; principal; 2024-05-18 08:00)
DX: A41.9 Sepsis, unspecified organism (principal); K35.201 Acute appendicitis with generalized peritonitis, with perforation, without abscess; I10 Essential (primary) hypertension; E86.0 Dehydration; K57.90 Diverticulosis of intestine, part unspecified, without perforation or abscess without bleeding; R16.0 Hepatomegaly, not elsewhere classified; K76.0 Fatty (change of) liver, not elsewhere classified
CPT/HCPCS: 00840; 36415; 64486; 71045; 71045-26; 74177; 74177-26; 80048; 80053; 80061; 81003; 83036; 83605; 84443; 85025; 85027; 85652; 86140; 93005; 93010; 96361; 96365; 96366; 96375; 96376; 99285; 99285-25; A9270-GY; G0378; J0360; J0665; J0690; J1100; J1171; J1650; J1805; J1885; J2003; J2250; J2405; J2543; J2704; J2795; J3010; J3490; J7030; J7120; Q9967